=== PATIENT | female | born 1980 | race Caucasian/White ===

== ENCOUNTER 2018-11-15 17:46 | Emergency (ER) | payer BC ==
[2018-11-15 18:44] LABS: URINE BLOOD (Dip) POC 1+ (NEGATIVE); URINE GLUCOSE (Dip) POC Negative (NEGATIVE); URINE KETONES (Dip) POC Negative (NEGATIVE); URINE LEUKOCYTE EST (Dip) POC Negative (NEGATIVE); URINE NITRITE (Dip) POC Negative (NEGATIVE); URINE TOTAL PROTEIN POC Negative (NEGATIVE)
== END 2018-11-15 19:15 | disposition home or self-care (01) ==
LOC: FTE 17:46
DX: M54.5 Low back pain (principal); R35.0 Frequency of micturition
CPT/HCPCS: 81003; 81025; 87086; 99283